=== PATIENT | female | born 1990 | race Caucasian/White ===

== ENCOUNTER 2017-12-06 07:30 | Inpatient (IN) | payer BC ==
[2017-12-06] MEDS ORDERED: HYDROCODONE/APAP (5/325) TAB PO (10:00)
[2017-12-06] MEDS ORDERED: NACL 0.9% 3 ML SYG IV (10:00)
[2017-12-06 10:20] LABS: ADD MAN DIFF? NO
[2017-12-06 10:26] LABS: WHITE BLOOD COUNT 4.3 10^3/ul (4.8-10.8)
[2017-12-06 10:26] LABS: BASOPHILS % 0.5 % (0.0-2.0); EOSINOPHILS % 0.7 % (0.0-7.0); HEMATOCRIT 39.7 % (37.0-47.0); HEMOGLOBIN 12.7 g/dl (12.0-16.0); LYMPHOCYTES # 1.1 10^3/ul (0.8-2.9); LYMPHOCYTES % 25.5 % (15.0-51.0); MEAN CORPUSCULAR HEMOGLOBIN 26.8 pg (29.0-33.0); MEAN CORPUSCULAR VOLUME 83.9 fl (82.0-101.0); MEAN PLATELET VOLUME 10.7 fl (7.4-10.4); MONOCYTE # 0.4 10^3/ul (0.3-0.9); MONOCYTES % 9.1 % (0.0-11.0); NEUTROPHIL # 2.8 10^3/ul (1.6-7.5); NEUTROPHILS % 64.2 % (39.0-77.0); PLATELET COUNT 142 10^3/UL (140-415); RED BLOOD COUNT 4.73 10^6/ul (4.20-5.40); RED CELL DISTRIBUTION WIDTH 16.5 % (11.5-14.5)
[2017-12-06 10:49] LABS: ALANINE AMINOTRANSFERASE 24 IU/L (13-69); ALBUMIN 4.2 g/dl (3.3-4.9); ALKALINE PHOSPHATASE 44 IU/L (42-121); ANION GAP 14 (8-16); ASPARTATE AMINO TRANSFERASE 22 IU/L (15-46); BILIRUBIN,INDIRECT 0.6 mg/dl (0-1.1); BILIRUBIN,TOTAL 0.6 mg/dl (0.2-1.3); BLOOD UREA NITROGEN 11 mg/dl (7-20); CALCIUM 9.1 mg/dl (8.4-10.2); CARBON DIOXIDE 26 mmol/L (21-31); CHLORIDE 105 mmol/L (97-110); CHOL/HDL RATIO 2.7 RATIO; CHOLESTEROL 160 mg/dl (100-200); CREATININE 0.66 mg/dl (0.44-1.00); GLUCOSE 97 mg/dl (70-220); HDL CHOLESTEROL 59 mg/dl (34-82); LDL CHOLESTEROL,CALCULATED 93 mg/dl; POTASSIUM 4.2 mmol/L (3.5-5.1); SODIUM 141 mmol/L (135-144); TOTAL PROTEIN 7.2 g/dl (6.1-8.1); TRIGLYCERIDES 41 mg/dl (0-149)
[2017-12-06 11:54] LABS: HEMOGLOBIN A1C 5.2 % (0-5.9)
[2017-12-07] MEDS ORDERED: ENOXAPARIN 30 MG/0.3 ML SYG SC (09:00)
== END 2017-12-06 15:21 | disposition home or self-care (01) | DRG 103 ==
LOC: MS4 07:30
DX: R51 Headache (principal); R20.0 Anesthesia of skin
CPT/HCPCS: 70551; 80053; 80061; 83036; 85025